=== PATIENT | female | born 1970 | race Caucasian/White ===

== ENCOUNTER 2017-08-19 11:41 | Emergency (ER) | payer MEDICAID ==
[~2017-08-19] VITALS: Ht 165.1 cm; Wt 68.6 kg
[~2017-08-19 11:41] MED LIST: DIAZ5TAB4 PO; HYDR-3237 PO; SERT100T PO
[2017-08-19] MEDS ORDERED: SODIUM CHLORIDE FLUSH 10ML SYR IVF ONE (13:30)
[2017-08-19] MEDS ORDERED: SODIUM CHLORIDE 0.9% 1,000ML IVBOLUS ONE (13:30)
[2017-08-19 13:46] LABS: HEMATOCRIT 43.9 % (34.6-47.8); HEMOGLOBIN 14.7 g/dL (11.7-16.4); WHITE BLOOD COUNT 10.4 x10^3/uL (3.4-10)
[2017-08-19 13:57] LABS: ASPARTATE AMINO TRANSFERASE 43 U/L (15-37); BLOOD UREA NITROGEN 8 mg/dL (7-18)
[2017-08-19] MEDS ORDERED: ONDANSETRON 2MG/ML, 2ML IVPush ONE (14:00)
[2017-08-19] MEDS ORDERED: morphine SULFATE 10 MG/ML, 1ML ONE ×2 (14:15→15:10)
[2017-08-19] MEDS ORDERED: ONDANSETRON 2MG/ML, 2ML ONE (14:16)
[2017-08-19] MEDS: MORPHINE SULFATE 4 MG/ML, 1ML IVPush PRN ×2 (14:20→15:16)
[2017-08-19] MEDS ORDERED: OMNIPAQUE 350 MG/ML, 100ML BOTTLE ONE (14:57)
[2017-08-19 16:08] VITALS: BP 99/56
== END 2017-08-19 16:10 | disposition home or self-care (01) ==
LOC: ED 16:04
DX: G89.18 Other acute postprocedural pain (principal); R10.2 Pelvic and perineal pain; B17.9 Acute viral hepatitis, unspecified; F32.9 Major depressive disorder, single episode, unspecified; F41.9 Anxiety disorder, unspecified; K21.9 Gastro-esophageal reflux disease without esophagitis; Z98.890 Other specified postprocedural states
CPT/HCPCS: 36415; 74177; 80053; 81001; 83690; 85025; 86704; 86706; 86708; 86803; 87086; 87340; 96361; 96374; 96375; 96376; 99285; J2405; J7030; Q9967